=== PATIENT | male | born 1995 | race American Indian/Alaskan Native ===

== ENCOUNTER 2016-09-18 22:57 | Emergency (ER) | payer SELFPAY ==
[2016-09-18 23:42] LABS: Urine Drugs of Abuse Note Disclamer
[2016-09-18 23:44] LABS: Basophils % (Auto) 0.5 % (0.0-1.8); Eosinophils % (Auto) 0.9 % (0.0-4.3); Hematocrit 41.9 % (35.5-45.6); Hemoglobin 14.1 gm/dl (11.8-15.2); Mean Corpuscular HGB Conc 34 % (32-34); Mean Corpuscular Hemoglobin 33 pg (28-32); Mean Corpuscular Volume 97 fl (84-94); Platelet Count 268 K/mm3 (140-440); Red Blood Count 4.31 M/mm3 (3.65-5.03); Red Cell Distribution Width 14.6 % (13.2-15.2); White Blood Count 6.4 K/mm3 (4.5-11.0)
[2016-09-18 23:52] LABS: Bilirubin,Urine NEG (Negative); Blood,Urine NEG (Negative); Ketones,Urine NEG (Negative); Leukocyte Esterase,Urine NEG (Negative); Nitrite,Urine NEG (Negative); Protein,Urine <15 mg/dL mg/dL (Negative); Urobilinogen,Urine < 2.0 mg/dL (<2.0); WBC,Urine < 1.0 /HPF (0.0-6.0)
[2016-09-18 23:54] LABS: Anion Gap 15 mmol/L; BUN/Creatinine Ratio 8.75; Blood Urea Nitrogen 7 mg/dL (9-20); Calcium 8.8 mg/dL (8.4-10.2); Carbon Dioxide 29 mmol/L (22-30); Chloride 107.1 mmol/L (98-107); Glucose 90 mg/dL (75-100); Potassium 4.2 mmol/L (3.6-5.0); Sodium 147 mmol/L (137-145)
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
--- NOTE | 2016-09-19 05:47 | Event Note ---
Date: 09/19/16 Vital signs reviewed and appreciated. Patient pending psychiatric consultation. Vital Signs 09/18/16 23:22 Temperature 98.1 F Pulse Rate 85 Respiratory 16 Rate Blood Pressure 140/90 [Left] O2 Sat by Pulse 99 Oximetry
--- NOTE | 2016-09-19 17:19 | Consultation ---
History of Present Illness - Reason for Consult Consult date: 09/19/16 Reason for consult: EtOH intoxication and SI - History of Present Psychiatric Illness This is a 20 year old male with a PPH of MDD who now presents with worsening mood symptoms and SI in the context of social stressors and acute EtOH intoxication. On my assessment, he was not appearing intoxicated on clinical examination. He no longer endorsed SI and further noted that he was upset at his GF who has a big mouth. When asked about what, he noted about his unemployment. Patient recently lost his job several weeks ago at the [employer], but has now regained employment at [employer] in [place]. Current he denies SI, AVH, or manic symptoms. Medications and Allergies Allergies Allergy/AdvReac Type Severity Reaction Status Date / Time No Known Allergies Allergy Verified 11/17/15 19:12 Home Medications Medication Instructions Recorded Confirmed Last Taken Type No Known Home Medications [No 06/27/16 09/18/16 Unknown History Reported Home Medications] Mental Status Exam - Vital signs Last Vital Signs Temp 98.1 F 09/18/16 23:22 Pulse 85 09/18/16 23:22 Resp 16 09/18/16 23:22 BP 140/90 09/18/16 23:22 Pulse Ox 99 09/18/16 23:22 - Exam Narrative exam: "I am doing better" he is aware of his current situation. He is not taking medications. The patient notes that their mood is: sad. Affect is constricted Patient relates sleep is: inconsistent. Energy levels are: stable Appetite is: stable Anxiety: present and related to social circumstances Appearance: Patient appears stated age Behavior: cooperative Cooperation: fair Insight/Judgment: limited Level of cognition: not assessed comprehensively Level of consciousness: A/O x 3 Knowledge: unable to assess Speech: fluent Thought processes: organized and logical Thought content: no SI/HI Perceptions: no AVH Results Result Diagrams: 09/18/16 23:25 09/18/16 23:25 Abnormal lab results 09/18/16 09/18/16 09/18/16 Range/Units 23:25 23:25 23:25 MCV 97 H (84-94) fl MCH 33 H (28-32) pg Lymph % (Auto) 50.2 H (13.4-35.0) % Sodium 147 H (137-145) mmol/L Chloride 107.1 H (98-107) mmol/L BUN 7 L (9-20) mg/dL Plasma/Serum Alcohol 0.33 H (0-0.07) gm% All other labs normal. Assessment and Plan Assessment and plan: Impression: Acute EtOH Intoxication Underlying symptoms of Depression that has been present with remitting and relapsing course for the past two years. Last treatment was two years ago at an inpatient hospitalization. No SA noted per history Plan: Rescind [address] [place] [address] to help coordinate outpatient services in the community with a psychiatrist and a therapist Patient may benefit for a day program if he is amenable to going
[2016-09-19 18:43] VITALS: BP 156/96
== END 2016-09-19 20:36 | disposition home or self-care (01) ==
LOC: ED 22:57 → EEVIPCON 22:57 → ED 09-19 20:36
DX: R45.851 Suicidal ideations (principal); F10.129 Alcohol abuse with intoxication, unspecified; F17.200 Nicotine dependence, unspecified, uncomplicated
CPT/HCPCS: 36415; 80048; 80307; 81001; 85025; 99283; G0480; 80320

== ENCOUNTER 2016-10-27 00:58 | Emergency (ER) | payer SELFPAY ==
[2016-10-27] MEDS ORDERED: MOTRIN PO ONE (04:39)
--- NOTE | 2016-10-27 04:42 | XRay Report ---
FINAL REPORT PROCEDURE: XR HAND 3 RT TECHNIQUE: RIGHT hand radiographs, AP, lateral, and oblique views. CPT 15722-YL HISTORY: last two fingers swollen on right hand after fall COMPARISON: No prior studies are available for comparison. FINDINGS: Fracture (s) and/or Dislocation(s): None . Alignment: Normal . Joint space(s): Normal . Soft tissues: Normal . Bone mineralization: Normal . Foreign bodies: None . IMPRESSION: Normal Examination .
--- NOTE | 2016-10-27 05:01 | Emergency Department Report ---
Upper Extremity - HPI Chief Complaint: Extremity Injury, Upper Stated Complaint: RIGHT HAND AND SMALL FINGER PAIN Time Seen by Provider: 10/27/16 04:30 Upper Extremity: Right Little Finger Occurred When: 1 Day Mechanism: Fall Severity: moderate Symptoms: Yes Pain with Movement, Yes Swelling, Yes Bruising/Ecchymosis, No Deformity, No Limited Range of Movement, No Numbness, No Weakness, No Laceration or Abrasion Other History: 20-year-old male significant past medical history presents with complaint of right pinky pain status post mechanical fall last night. Patient states that he tripped while walking home onto his right pinky. Pinky bent backward momentarily. Denies any lacerations denies sustaining any other injuries. Pinky visibly swollen. Denies any other injuries other than some minor abrasions to right forearm ED Review of Systems ROS: Stated complaint: RIGHT HAND AND SMALL FINGER PAIN Other details as noted in HPI Constitutional: denies: chills, fever Eyes: denies: eye pain, eye discharge, vision change ENT: denies: ear pain, throat pain Respiratory: denies: cough, shortness of breath, wheezing Cardiovascular: denies: chest pain, palpitations Endocrine: no symptoms reported Gastrointestinal: denies: abdominal pain, nausea, diarrhea Genitourinary: denies: urgency, dysuria Musculoskeletal: as per HPI. denies: back pain, joint swelling, arthralgia Skin: denies: rash, lesions Neurological: denies: headache, weakness, paresthesias Psychiatric: denies: anxiety, depression Hematological/Lymphatic: denies: easy bleeding, easy bruising ED Past Medical Hx - Past Medical History Previous Medical History?: No Additional medical history: Various lacerations and contusuions listed in file - Social History Smoking Status: Unknown if ever smoked - Medications Home Medications: Home Medications Medication Instructions Recorded Confirmed Last Taken Type Ibuprofen [Motrin] 800 mg PO Q8HR PRN #25 tablet 10/27/16 Unknown Rx Upper Extremity Exam - Exam General: Vital signs noted. No distress. Alert and acting appropriately. Head and Torso: No HEENT Abnormality, No Neck Tenderness, No Chest/Lungs Abnormality, No Abdominal Tenderness, No Back Tenderness Shoulder Exam: Yes Normal Range of Motion in Shoulder, No Shoulder Tenderness, No Clavicle Tenderness, No Shoulder Deformity, No AC Joint Tenderness Arm Exam: No Arm/Humerus Tenderness, No Arm Deformity Elbow: No Elbow Tenderness, No Normal Range of Motion in Elbow, No Elbow Deformity Forearm: No Forearm Tenderness, No Forearm Deformity, No Pain with Pronation, No Pain with Supination Wrist: Yes Normal ROM in Wrist, No Wrist Tenderness, No Wrist Deformity, No Snuffbox Tenderness (there is no snuffbox tenderness right hand), No Pain with Axial Thumb Compression Hand: Yes Digit Tenderness (mild pinky finger swelling and tenderness at the MCP joints and PIP joints), Yes Normal ROM in Digit(s) (injury of motion at PIP joint DIP joint and MCP joints to flexion and extension fully intact and against resistance), No Hand Tenderness, No Hand Deformity, No Digit(s) Deformity, No Tendon Dysfunction CMS Exam: Yes Normal Distal Pulses, Yes Normal Capillary Refill (distal capillary refill all fingers less than 1 second), No Broken Skin, No Normal Distal Sensation ED Course Vital Signs 10/27/16 01:56 Temperature 98.3 F Pulse Rate 77 Respiratory 18 Rate Blood Pressure 138/93 O2 Sat by Pulse 98 Oximetry ED Medical Decision Making - Medical Decision Making A/P: Pinky finger sprain 1-x-ray shows no fractures, no snuffbox tenderness, no neurovascular injury to hand range of motion fingers DIP PIP and MCP wrist flexion and extension forearm motion fully intact only minor small abrasions to forearm 2-Motrin 800 when necessary 3-finger splint 4-follow-up with orthopedics Critical care attestation.: If time is entered above; I have spent that time in minutes in the direct care of this critically ill patient, excluding procedure time. ED Disposition Clinical Impression: Sprain of finger, right Qualifiers: Encounter type: initial encounter Qualified Code(s): S63.619A - Unspecified sprain of unspecified finger, initial encounter Disposition: DISCHARGED TO HOME OR SELFCARE Is pt being admited?: No Does the pt Need Aspirin: No Condition: Stable Instructions: Jammed Finger (ED), Finger Sprain (ED) Prescriptions: Ibuprofen [Motrin] 800 mg PO Q8HR PRN #25 tablet PRN Reason: Pain Referrals: ANGI LONDON MD [Staff Physician] - 3-5 Days Time of Disposition: 05:02
[2016-10-27 05:14] VITALS: BP 135/73
== END 2016-10-27 05:12 | disposition home or self-care (01) ==
LOC: ED 00:58
DX: S63.616A Unspecified sprain of right little finger, initial encounter (principal); W01.0XXA Fall on same level from slipping, tripping and stumbling without subsequent striking against object, initial encounter; Y93.01 Activity, walking, marching and hiking; Y99.8 Other external cause status; Y92.098 Other place in other non-institutional residence as the place of occurrence of the external cause
CPT/HCPCS: 99283

== ENCOUNTER 2018-01-04 01:32 | Emergency (ER) | payer SELFPAY ==
[2018-01-04 02:17] LABS: Basophils % (Auto) 0.3 % (0.0-1.8); Eosinophils # (Auto) 0.2 K/mm3 (0.0-0.4); Eosinophils % (Auto) 3.1 % (0.0-4.3); Hematocrit 42.6 % (35.5-45.6); Hemoglobin 14.7 gm/dl (11.8-15.2); Lymphocytes # (Auto) 2.5 K/mm3 (1.2-5.4); Lymphocytes % (Auto) 33.4 % (13.4-35.0); Mean Corpuscular HGB Conc 34 % (32-34); Mean Corpuscular Hemoglobin 33 pg (28-32); Mean Corpuscular Volume 95 fl (84-94); Monocytes # (Auto) 0.4 K/mm3 (0.0-0.8); Monocytes % (Auto) 5.3 % (0.0-7.3); Platelet Count 230 K/mm3 (140-440); Red Blood Count 4.49 M/mm3 (3.65-5.03); Red Cell Distribution Width 13.5 % (13.2-15.2)
[2018-01-04 02:40] LABS: BUN/Creatinine Ratio 6; Blood Urea Nitrogen 6 mg/dL (9-20); Calcium 8.7 mg/dL (8.4-10.2); Hemolysis Index 9
[2018-01-04 03:55] LABS: Bilirubin,Urine NEG (Negative); Blood,Urine NEG (Negative); Color,Urine Yellow (Yellow); Mucus,Urine FEW /HPF; Protein,Urine <15 mg/dL mg/dL (Negative); Urobilinogen,Urine < 2.0 mg/dL (<2.0)
[2018-01-04 04:03] LABS: Amphetamine Screen,Urine PRESUMPTIVE NEGATIVE; Benzodiazepines Screen,Urine PRESUMPTIVE NEGATIVE; Methadone Screen,Urine PRESUMPTIVE NEGATIVE; Opiate Screen,Urine PRESUMPTIVE NEGATIVE
[2018-01-04 04:32] LABS: Cannabinoid Screen,Urine PRESUMPTIVE POSITIVE; Cocaine Screen,Urine PRESUMPTIVE POSITIVE
--- NOTE | 2018-01-04 05:14 | Emergency Department Report ---
<VICKIKOTA - Last Filed: 01/04/18 05:10> ED Psych HPI - General Chief Complaint: Psych Stated Complaint: MENTAL HEALTH Time Seen by Provider: 01/04/18 05:06 Source: patient Mode of arrival: Ambulatory - History of Present Illness Initial Comments: 22-year-old man presents with history of accelerating and chronic stress at home , with increasing anxiety and interpersonal difficulties with family members at home. He has had multiple stressors, usually interpersonal, but has not been physically violent, and although he has felt somewhat depressed as result of his anxiety, he has not gross or desperate, and has not had suicidal ideation. He drinks alcohol regular, sometimes to excess, last drink was approximately 8 hours earlier, but does not feel intoxicated, does not feel agitated or unsteady , has no nausea, no chest pain, no formication. Past medical history good general health, with a distant history of asthma, and he reports some vague past contact for mental health evaluations, but has never followed up on this routinely, but has never been treated with any medications for any mental issues. He takes no medications routinely, has no allergies, denies recreational substance abuse, but he does smoke daily. -: month(s) Associated Psychiatric Symptoms: depression History of same: No Quality: intermittent, getting worse Improves With: none Worsens With: none Context: recent alcohol abuse, significant life stressor Associated Symptoms: denies other symptoms Treatments Prior to Arrival: none - Related Data Previous Rx's Medication Instructions Recorded Last Taken Type Ibuprofen [Motrin] 800 mg PO Q8HR PRN #25 tablet 10/27/16 Unknown Rx Allergies Allergy/AdvReac Type Severity Reaction Status Date / Time No Known Allergies Allergy Verified 11/17/15 19:12 ED Review of Systems ROS: Stated complaint: MENTAL HEALTH Other details as noted in HPI Comment: All other systems reviewed and negative Constitutional: denies: chills, fever Eyes: denies: eye pain, eye discharge, vision change Respiratory: denies: cough, shortness of breath, wheezing Cardiovascular: denies: chest pain, palpitations Endocrine: no symptoms reported Gastrointestinal: denies: abdominal pain, nausea, diarrhea Musculoskeletal: denies: back pain, joint swelling, arthralgia Skin: denies: rash, lesions Neurological: denies: headache, weakness, paresthesias Psychiatric: anxiety, depression Hematological/Lymphatic: denies: easy bleeding, easy bruising ED Past Medical Hx - Past Medical History Previous Medical History?: No Hx Asthma: Yes Additional medical history: Various lacerations and contusuions listed in file - Surgical History Past Surgical History?: No - Social History Smoking Status: Current Every Day Smoker Substance Use Type: Alcohol - Medications Home Medications: Home Medications Medication Instructions Recorded Confirmed Last Taken Type Ibuprofen [Motrin] 800 mg PO Q8HR PRN #25 tablet 10/27/16 Unknown Rx ED Physical Exam - General Limitations: No Limitations General appearance: alert, anxious - Head Head exam: Present: atraumatic, normocephalic - Eye Eye exam: Present: PERRL, EOMI - ENT ENT exam: Present: normal exam, mucous membranes moist - Neck Neck exam: Present: normal inspection. Absent: tenderness - Respiratory Respiratory exam: Present: normal lung sounds bilaterally, wheezes. Absent: rales, rhonchi (rare, faint), chest wall tenderness - Cardiovascular Cardiovascular Exam: Present: regular rate, normal heart sounds. Absent: systolic murmur, diastolic murmur - GI/Abdominal GI/Abdominal exam: Present: soft, normal bowel sounds. Absent: distended, tenderness, guarding, rebound - Rectal Rectal exam: Present: deferred - Extremities Exam Extremities exam: Present: normal inspection, full ROM, normal capillary refill. Absent: tenderness, pedal edema - Back Exam Back exam: Present: normal inspection - Neurological Exam Neurological exam: Present: alert, oriented X3, CN II-XII intact. Absent: motor sensory deficit, other (no tremor) - Psychiatric Psychiatric exam: Present: anxious - Skin Skin exam: Present: warm, dry, intact ED Course Vital Signs 01/04/18 01/04/18 01/04/18 01:41 04:00 04:06 Temperature 98.4 F 98.4 F Pulse Rate 111 H 94 H Respiratory 18 18 20 Rate Blood Pressure 129/75 Blood Pressure 112/46 [Right] O2 Sat by Pulse 99 95 95 Oximetry ED Medical Decision Making - Lab Data Result diagrams: 01/04/18 01:47 01/04/18 01:47 Critical care attestation.: If time is entered above; I have spent that time in minutes in the direct care of this critically ill patient, excluding procedure time. ED Disposition Clinical Impression: Acute alcohol intoxication, Stress at home Disposition: DC-01 TO HOME OR SELFCARE Condition: Stable Instructions: Abuse of Alcohol (ED) <FOTRINOANGELIC - Last Filed: 01/04/18 09:36> ED Medical Decision Making - Lab Data Result diagrams: 01/04/18 01:47 01/04/18 01:47 - Medical Decision Making I evaluated Mr. Jordan after assuming care of patient from my colleague Dr. Alvarado. Psychiatric team evaluated Mr. Jordan. He was given outpatient resources. He denies SI or HI. He reports drinking alcohol when he is "stressed". He is appropriate for discharge home. ED Disposition Is pt being admited?: No Does the pt Need Aspirin: No Time of Disposition: 09:36
[2018-01-04 10:54] VITALS: BP 116/74
--- NOTE | 2018-01-04 12:43 | Consultation ---
History of Present Illness - Reason for Consult Consult date: 01/04/18 Reason for consult: Mental Health Evaluation Requesting physician: KOTA COHEN - Chief Complaint Chief complaint: "I need to stop drinking" - History of Present Psychiatric Illness 22-year-old man presents with history of accelerating and chronic stress at home. Today the patient is calm and cooperative during the assessment. He stated that he was stressed prior to his admission and had several drinks (etoh ) to calm himself down. He stated that he is experiencing some life stressors, but feel like it will pass soon (the stress). He stated that he started drinking alcohol (etoh) as a teenager. He stated that his alcohol consumption had increased over the past several months because of "stress." He stated that he would like a referral to outpatient rehab services. He denies depression and manic episodes in the past. He denies SI/HI's and AVH's. He admitted to recreational drug use. Medications and Allergies Allergies Allergy/AdvReac Type Severity Reaction Status Date / Time No Known Allergies Allergy Verified 11/17/15 19:12 Home Medications Medication Instructions Recorded Confirmed Last Taken Type Ibuprofen [Motrin] 800 mg PO Q8HR PRN #25 tablet 10/27/16 Unknown Rx Past psychiatric history - Past Medical History Past Medical History: other (Asthma) Past Surgical History: No surgical history - past Psychiatric treatment and history psychiatric treatment history: Denies a psy hx and fam psy hx. Mental Status Exam - Vital signs Last Vital Signs Temp 98.4 F 01/04/18 10:53 Pulse 74 01/04/18 10:53 Resp 16 01/04/18 10:53 BP 116/74 01/04/18 10:53 Pulse Ox 95 01/04/18 04:06 - Exam Narrative exam: MSE: Appearance: calm, cooperative Behavior: regular eye contact Speech: regular rate and tone Mood: "okay" Affect: congruent to mood Thought Process: linear Thought Content: denies SI/HI's and AVH's Motor Activity: ambulatory Cognition: A/O x 3 Insight: appropriate Judgment: appropriate Results Result Diagrams: 01/04/18 01:47 01/04/18 01:47 Abnormal lab results 01/04/18 01/04/18 01/04/18 Range/Units 01:47 01:47 01:47 MCV (84-94) fl MCH (28-32) pg BUN 6 L (9-20) mg/dL Salicylates < 0.3 L (2.8-20.0) mg/dL Acetaminophen < 5.0 L (10.0-30.0) ug/mL Plasma/Serum Alcohol (0-0.07) % 01/04/18 01/04/18 Range/Units 01:47 01:47 MCV 95 H (84-94) fl MCH 33 H (28-32) pg BUN (9-20) mg/dL Salicylates (2.8-20.0) mg/dL Acetaminophen (10.0-30.0) ug/mL Plasma/Serum Alcohol 0.18 H (0-0.07) % All other labs normal. Assessment and Plan Assessment and plan: Impression: Alcohol Use DO. Alcohol Intoxication on admission. Substance Use DO (cocaine). Cannabis Use DO. Today the patient is calm and cooperative during the assessment. DDx: R/O Mood DO, R/O Substance Induced Mood DO Recommendation/Plan: The patient can follow up with [facility] for outpatient rehab services.
== END 2018-01-04 10:54 | disposition home or self-care (01) ==
LOC: ED 01:32
DX: F10.129 Alcohol abuse with intoxication, unspecified (principal); F43.9 Reaction to severe stress, unspecified; J45.909 Unspecified asthma, uncomplicated; F17.200 Nicotine dependence, unspecified, uncomplicated; Z79.899 Other long term (current) drug therapy
CPT/HCPCS: 36415; 80048; 80307; 81001; 85025; 99283; G0480; 80320

== ENCOUNTER 2018-07-06 18:52 | Emergency (ER) | payer SELFPAY ==
[2018-07-06 19:24] LABS: Hemoglobin 14.4 gm/dl (11.8-15.2); Mean Corpuscular HGB Conc 34 % (32-34); Mean Corpuscular Volume 94 fl (84-94); Platelet Count 284 K/mm3 (140-440); Red Blood Count 4.57 M/mm3 (3.65-5.03); Red Cell Distribution Width 15.3 % (13.2-15.2)
[2018-07-06 19:36] LABS: Bilirubin,Urine NEG (Negative); Blood,Urine NEG (Negative); Color,Urine Straw (Yellow); Protein,Urine <15 mg/dL mg/dL (Negative); Urobilinogen,Urine < 2.0 mg/dL (<2.0)
[2018-07-06 19:44] LABS: Amphetamine Screen,Urine PRESUMPTIVE NEGATIVE; Benzodiazepines Screen,Urine PRESUMPTIVE NEGATIVE; Methadone Screen,Urine PRESUMPTIVE NEGATIVE; Opiate Screen,Urine PRESUMPTIVE NEGATIVE
[2018-07-06 19:46] LABS: BUN/Creatinine Ratio 8; Blood Urea Nitrogen 6 mg/dL (9-20); Calcium 8.9 mg/dL (8.4-10.2); Hemolysis Index 9
[2018-07-06 19:57] LABS: Cannabinoid Screen,Urine PRESUMPTIVE POSITIVE; Cocaine Screen,Urine PRESUMPTIVE POSITIVE
[2018-07-06 20:01] LABS: Basophils % (Manual) 0 % (0.0-1.8); RBC Morphology Normal; Total Cells Counted 100
--- NOTE | 2018-07-06 20:06 | Emergency Department Report ---
HPI - General Chief Complaint: Psych Time Seen by Provider: 07/06/18 19:30 - HPI HPI: 22-year-old -[place] male presents to the emergency department for a mental health evaluation and hopes of getting to a drug/alcohol detoxification and rehabilitation Center. The patient uses marijuana, cocaine and drinks alcohol. He drinks alcohol to get drunk every day. He says that he does have a history of attempting to quit but he started having shakes and withdrawal symptoms. Patient denies any suicidal or homicidal ideations. He denies any hallucinations but sometimes does admit to some paranoia. 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 ED Past Medical Hx - Past Medical History Hx Asthma: Yes Additional medical history: Various lacerations and contusuions listed in file - Surgical History Past Surgical History?: No - Social History Smoking Status: Current Every Day Smoker Substance Use Type: Alcohol, Cocaine, Marijuana - Medications Home Medications: Home Medications Medication Instructions Recorded Confirmed Last Taken Type Ibuprofen [Motrin] 800 mg PO Q8HR PRN #25 tablet 10/27/16 Unknown Rx ED Review of Systems ROS: Stated complaint: CRISIS Other details as noted in HPI Comment: All other systems reviewed and negative Constitutional: denies: chills, fever Eyes: denies: eye pain, eye discharge, vision change ENT: denies: ear pain, throat pain Respiratory: denies: cough, shortness of breath, wheezing Cardiovascular: denies: chest pain, palpitations Gastrointestinal: denies: abdominal pain, vomiting Genitourinary: denies: urgency, dysuria Musculoskeletal: denies: back pain, arthralgia Skin: denies: rash, lesions Neurological: denies: headache, weakness Psychiatric: denies: auditory hallucinations, visual hallucinations, homicidal thoughts, suicidal thoughts Physical Exam - Physical Exam Vital Signs: Vital Signs 07/06/18 19:15 Temperature 97.7 F Pulse Rate 88 Respiratory 18 Rate Blood Pressure 137/95 O2 Sat by Pulse 100 Oximetry Physical Exam: GENERAL: The patient is well-developed well-nourished. HEENT: Normocephalic. Atraumatic. Patient has moist mucous membranes. EYES: Extraocular motions are intact. NECK: Supple. Trachea is midline. CHEST/LUNGS: Clear to auscultation. There is no respiratory distress noted. HEART/CARDIOVASCULAR: Regular. There is no tachycardia. There is no obvious murmur. ABDOMEN: Abdomen is soft, nontender. Patient has normal bowel sounds. There is no abdominal distention. SKIN: Skin is warm and dry. NEURO: The patient is awake, alert, and oriented. The patient is cooperative. The patient has no focal neurologic deficits. The patient has normal speech. MUSCULOSKELETAL: There is no tenderness or deformity. There is no limitation range of motion. There is no evidence of acute injury. ED Course Vital Signs 07/06/18 19:15 Temperature 97.7 F Pulse Rate 88 Respiratory 18 Rate Blood Pressure 137/95 O2 Sat by Pulse 100 Oximetry ED Medical Decision Making - Lab Data Result diagrams: 07/06/18 19:16 07/06/18 19:16 - Medical Decision Making Patient presents for some assistance with drug and alcohol detoxification and rehabilitation. Patient is a consistent user of cocaine and alcohol. Despite the fact that the patient's blood alcohol level was 0.29 upon arrival, he is calm and appropriate, oriented. Urine drug screen was positive for both cocaine and marijuana which the patient is admitted to using. The rest of his blood work is unremarkable. He says that he will occasionally have some paranoia, although he does not display this at this time. No signs of any acute psychosis. He denies any suicidal or homicidal ideations. He does not appear to meet criteria to be made a 1013, but the patient will be made a 2013 and we will assist in placement for drug and alcohol rehabilitation. - Differential Diagnosis alcohol dependence/intoxication, polysubstance abuse, bipolar disorder Critical Care Time: No Critical care attestation.: If time is entered above; I have spent that time in minutes in the direct care of this critically ill patient, excluding procedure time. ED Disposition Clinical Impression: Cocaine use Alcohol intoxication Qualifiers: Complication of substance-induced condition: uncomplicated Qualified Code(s): F10.920 - Alcohol use, unspecified with intoxication, uncomplicated Alcohol dependence Qualifiers: Substance use status: unspecified alcohol-induced disorder Qualified Code(s): F10.29 - Alcohol dependence with unspecified alcohol-induced disorder Disposition: DC/TX-65 PSY HOSP/PSY UNIT Is pt being admited?: No Condition: Stable Referrals: PRIMARY CARE, [Primary Care Provider] - 3-5 Days Time of Disposition: 23:51
[2018-07-06] MEDS ORDERED: VITAMIN B-1 PO ONE (23:17)
[2018-07-06] MEDS ORDERED: THERAGRAN Tab PO ONE (23:17)
[2018-07-07 09:40] VITALS: BP 124/77
--- NOTE | 2018-07-07 13:40 | Consultation ---
History of Present Illness - Reason for Consult Consult date: 07/07/18 Reason for consult: Initial Psychiatric Evaluation - Chief Complaint Chief complaint: " I am going through a crisis" - History of Present Psychiatric Illness Patient is a 22-year-old -[place] male that presents to the emergency department for a mental health evaluation. Patient verbalizes that he is here for drug and alcohol abuse. Patient would like to go to a rehabilitation center for drugs/alcohol. Patient states that his drug of choice is cocaine, marijuana, and alcohol. Per patient he uses approximately 1 gram of cocaine every other day, 1 pint of alcohol daily, and 1 "blunt" every couple of weeks. He last used on 07-06-18. Today the patient is calm and cooperative during the assessment. He reports anhedonia, decrease appetite, decrease energy, and decrease sleep. Also patient endorses depressed mood related to financial/relationship stressors. He denies SI/HI's, A/VH's, and delusions. Per patient when under the influence of drugs/alcohol he has paranoid delusions. Current Psychiatric Medications: Patient denies. Past Psychiatric History: No previous psychiatric diagnosis; 2 previous inpatient psychiatric hospitalizations ([place], 2-3 years ago); No outpatient psychiatrist; No previous suicide attempt. Past Medication Trials: Patient denies. History of Trauma/Abuse: Patient denies sexual, physical, and mental abuse. History of Drug/Alcohol Abuse: Cocaine-1 gram of cocaine every other day, "snort," last use- 07-06-18, first use- Age 20 ; Alcohol- 1 pint of alcohol daily, " drink, " last use- 07-06-18, first use- Age 12; Marijuana - 1 blunt every couple of weeks, "smoke", last use- " a couple of weeks ago," first use- " Age 12." UDS positive for cocaine and marijuana. Social History: Some college; 1 son- age 4; lives with grandmother; employed at [employer]; good support system - " grandmother, sister, and brother." Family History of Psychiatric Illness/Substance Abuse: Patient denies family history of psychiatric illness and substance abuse. Medications and Allergies Allergies Allergy/AdvReac Type Severity Reaction Status Date / Time No Known Allergies Allergy Verified 11/17/15 19:12 Home Medications Medication Instructions Recorded Confirmed Last Taken Type Ibuprofen [Motrin] 800 mg PO Q8HR PRN #25 tablet 10/27/16 Unknown Rx Mental Status Exam - Vital signs Last Vital Signs Temp 98.5 F 07/07/18 08:00 Pulse 69 07/07/18 08:00 Resp 14 07/07/18 08:00 BP 124/77 07/07/18 08:00 Pulse Ox 98 07/07/18 08:00 - Exam Narrative exam: Mental Status Exam: Appearance: cooperative and calm Behavior: regular eye contact Speech: regular rate and tone Mood: "depressed/sad " Affect: constricted Thought Process: organized Thought Content: denies SI/HI's, A/VH's, and delusions. Motor Activity: ambulatory Cognition: A/O x 3 Insight: variable Judgment: variable Results Result Diagrams: 07/06/18 19:16 07/06/18 19:16 Abnormal lab results 07/06/18 07/06/18 07/06/18 Range/Units 19:16 19:16 19:16 RDW (13.2-15.2) % Seg Neuts % (Manual) (40.0-70.0) % Lymphocytes % (Manual) (13.4-35.0) % Eosinophils % (Manual) (0.0-4.3) % Eosinophils # (Manual) (0.0-0.4) K/mm3 BUN 6 L (9-20) mg/dL Salicylates < 0.3 L (2.8-20.0) mg/dL Acetaminophen < 5.0 L (10.0-30.0) ug/mL Plasma/Serum Alcohol (0-0.07) % 07/06/18 07/06/18 Range/Units 19:16 19:16 RDW 15.3 H (13.2-15.2) % Seg Neuts % (Manual) 36.0 L (40.0-70.0) % Lymphocytes % (Manual) 49.0 H (13.4-35.0) % Eosinophils % (Manual) 8.0 H (0.0-4.3) % Eosinophils # (Manual) 0.5 H (0.0-0.4) K/mm3 BUN (9-20) mg/dL Salicylates (2.8-20.0) mg/dL Acetaminophen (10.0-30.0) ug/mL Plasma/Serum Alcohol 0.29 H (0-0.07) % All other labs normal. Assessment and Plan Assessment and plan: Impression: PPHx MDD, recurrent, moderate without psychosis, Cocaine Use Disorder, moderate, Alcohol Use Disorder, severe, Cannabis Use Disorder, mild. Today the patient is calm and cooperative during the assessment. He endorses depressed mood. UDS positive for cocaine and marijuana. DDx: R/O Bipolar DO without psychosis, Substance Induced Mood/Psychotic DO Recommendation/Plan: 1. Continue 1013. 2. Start Remeron 7.5mg po QHS depression. Discussed possible increase suicidality. Patient verbalizes full understanding. 3. Will monitor mood, sleep, appetite, compliance, side effects, and withdrawal symptoms. Disposition: The patient was referred to inpatient psychiatric services. Staffed with Dr. Kerry Seals.
[2018-07-07] MEDS ORDERED: REMERON PO SCH (22:00)
== END 2018-07-07 14:47 ==
LOC: ED 18:52
DX: F14.90 Cocaine use, unspecified, uncomplicated (principal); J45.909 Unspecified asthma, uncomplicated; F17.200 Nicotine dependence, unspecified, uncomplicated
CPT/HCPCS: 36415; 80048; 80307; 81001; 85007; 85025; 99285; G0480; 80320

== ENCOUNTER 2020-07-18 16:29 | Emergency (ER) | payer SELFPAY ==
[2020-07-18 16:47] VITALS: BP 142/90
--- NOTE | 2020-07-18 17:21 | XRay Report ---
XR knee 1-2V RT INDICATION: Right knee pain and swelling after injury while playing yesterday.. COMPARISON: No relevant prior imaging study available. FINDINGS: No acute skeletal abnormality. There is a large joint effusion. IMPRESSION: 1. Large joint effusion suggests internal derangement. No displaced fracture is seen. MRI should be c onsidered. Signer Name: Benito Sheldon MD Signed: 07/18/2020 5:16 PM Workstation Name: [id number]
[2020-07-18] MEDS ORDERED: HYDROcodone/ACETAMINOPHEN 5-325 MG TAB PO ONE (17:29)
--- NOTE | 2020-07-18 17:33 | Emergency Department Report ---
ED Lower Extremity HPI - General Chief Complaint: Extremity Injury, Lower Stated Complaint: RT KNEE POSS FX Time Seen by Provider: 07/18/20 17:22 Source: patient Mode of arrival: Ambulatory Limitations: No Limitations - History of Present Illness Initial Comments: Patient is a 24-year-old male who presents emergency room with complaints of a right knee injury that occurred last night. He states that he was playing around with his cousin and his cousin kicked him in the knee which caused internal rotation of the knee and he fell onto the knee. He states since then he has had knee pain and swelling. He states he has not been ambulatory secondary to pain. He denies ever injuring the past. He denies any numbness or weakness. No past medical history. No allergies to medications. - Related Data Previous Rx's Medication Instructions Recorded Last Taken Type Ibuprofen [Motrin] 800 mg PO Q8HR PRN #25 tablet 10/27/16 Unknown Rx HYDROcodone/APAP 5-325 [[place] 1 each PO Q6HR PRN #12 tablet 07/18/20 Unknown Rx 5/325] Ibuprofen [Motrin 600 MG tab] 600 mg PO Q8H PRN #20 tablet 07/18/20 Unknown Rx Allergies Allergy/AdvReac Type Severity Reaction Status Date / Time No Known Allergies Allergy Verified 11/17/15 19:12 ED Review of Systems ROS: Stated complaint: RT KNEE POSS FX Other details as noted in HPI Comment: All other systems reviewed and negative ED Past Medical Hx - Past Medical History Hx Asthma: Yes Additional medical history: Various lacerations and contusuions listed in file - Surgical History Past Surgical History?: No - Social History Smoking Status: Current Every Day Smoker - Medications Home Medications: Home Medications Medication Instructions Recorded Confirmed Last Taken Type Ibuprofen [Motrin] 800 mg PO Q8HR PRN #25 tablet 10/27/16 Unknown Rx HYDROcodone/APAP 5-325 [[place] 1 each PO Q6HR PRN #12 tablet 07/18/20 Unknown Rx 5/325] Ibuprofen [Motrin 600 MG tab] 600 mg PO Q8H PRN #20 tablet 07/18/20 Unknown Rx ED Physical Exam - General Limitations: No Limitations General appearance: alert, in no apparent distress - Head Head exam: Present: atraumatic, normocephalic - Eye Eye exam: Present: normal appearance - ENT ENT exam: Present: mucous membranes moist - Respiratory Respiratory exam: Absent: respiratory distress, accessory muscle use - Extremities Exam Extremities exam: Present: other (edema present to the right knee, ttp of the right anterior and right medial knee, decreased ROM of the right knee secondary to pain, neurovascularly intact) - Neurological Exam Neurological exam: Present: alert, oriented X3 - Psychiatric Psychiatric exam: Present: normal affect, normal mood - Skin Skin exam: Present: warm, dry, intact ED Course Vital Signs 07/18/20 07/18/20 16:44 17:36 Temperature 98.9 F Pulse Rate 94 H Respiratory 20 18 Rate Blood Pressure 142/90 O2 Sat by Pulse 98 Oximetry ED Lower Extremity MDM - Radiology Data Radiology results: report reviewed Ordering Physician: ED MD JUNIOR Date of Service: 07/18/20 Procedure(s): XR knee 1-2V RT Accession Number(s): [id number] cc: ED MD JUNIOR Fluoro Time In Minutes: XR knee 1-2V RT INDICATION: Right knee pain and swelling after injury while playing yesterday.. COMPARISON: No relevant prior imaging study available. FINDINGS: No acute skeletal abnormality. There is a large joint effusion. IMPRESSION: 1. Large joint effusion suggests internal derangement. No displaced fracture is seen. MRI should be considered. Signer Name: Benito Sheldon MD Signed: 07/18/2020 5:16 PM Workstation Name: [id number] Transcribed By: OBED Dictated By: Benito Sheldon MD Electronically Authenticated By: Benito Sheldon MD Signed Date/Time: 07/18/201715 DD/ 15 TD/TT: - Medical Decision Making Patient is a 24-year-old male who presents emergency room with complaints of a right knee injury that occurred last night. He states that he was playing around with his cousin and his cousin kicked him in the knee which caused internal rotation of the knee and he fell onto the knee. He states since then he has had knee pain and swelling. He states he has not been ambulatory secondary to pain. He denies ever injuring the past. He denies any numbness or weakness. No past medical history. No allergies to medications. VSS. on exam: edema present to the right knee, ttp of the right anterior and right medial knee, decreased ROM of the right knee secondary to pain, neurovascularly intact. XR right knee: 1. Large joint effusion suggests internal derangement. No displaced fracture is seen. MRI should be considered. Examination concerning fo r ligamentous tear. Patient given pain medication while in the ED and symptoms improved. Patient placed in knee immobilizer and given crutches and remained neurovascularly intact. Patient given prescription for [place] and ibuprofen. Advised patient Please take medication as prescribed as needed. Please do not drive or operate machinery while taking severe pain medication. Please do not bear weight on the right leg due to concern for knee ligament tear. Follow-up with orthopedic doctor. It is very important that you follow-up. May use ice for 15 minutes at a time, rest, elevation of the leg. Return to emergency room for new or worsening symptoms. - Differential Diagnosis Strain, sprain, fracture, dislocation, contusion, tendinitis, effusion Critical care attestation.: If time is entered above; I have spent that time in minutes in the direct care of this critically ill patient, excluding procedure time. ED Disposition Clinical Impression: Knee effusion, right Internal derangement of knee Qualifiers: Laterality: right Qualified Code(s): M23.91 - Unspecified internal derangement of right knee Knee sprain Qualifiers: Encounter type: initial encounter Involved ligament of knee: unspecified ligament Laterality: right Qualified Code(s): S83.91XA - Sprain of unspecified site of right knee, initial encounter Disposition: - TO HOME OR SELFCARE Is pt being admited?: No Does the pt Need Aspirin: No Condition: Stable Additional Instructions: Please take medication as prescribed as needed. Please do not drive or operate machinery while taking severe pain medication. Please do not bear weight on the right leg due to concern for knee ligament tear. Follow-up with orthopedic doctor. It is very important that you follow-up. May use ice for 15 minutes at a time, rest, elevation of the leg. Return to emergency room for new or worsening symptoms. Prescriptions: Ibuprofen [Motrin 600 MG tab] 600 mg PO Q8H PRN #20 tablet PRN Reason: Pain HYDROcodone/APAP 5-325 [[place] 5/325] 1 each PO Q6HR PRN #12 tablet PRN Reason: Pain , Severe (7-10) Referrals: [facility] [Provider Group] - 3-5 Days RUBA REGALADO MD [Staff Physician] - 3-5 Days Time of Disposition: 17:31 Print Language: BARBADIAN
== END 2020-07-18 17:48 | disposition home or self-care (01) ==
LOC: ED 16:29
DX: S83.91XA Sprain of unspecified site of right knee, initial encounter (principal); M23.91 Unspecified internal derangement of right knee; M25.461 Effusion, right knee; J45.909 Unspecified asthma, uncomplicated; F17.200 Nicotine dependence, unspecified, uncomplicated; Z79.899 Other long term (current) drug therapy; W50.1XXA Accidental kick by another person, initial encounter; Y93.89 Activity, other specified; Y92.89 Other specified places as the place of occurrence of the external cause; Y99.8 Other external cause status

== ENCOUNTER 2020-07-28 23:54 | Emergency (ER) | payer SELFPAY ==
--- NOTE | 2020-07-29 00:14 | Event Note ---
ED Screening Note Date of service: 07/29/20 Time: 00:12 ED Screening Note: This initial assessment/diagnostic orders/clinical plan/treatment(s) is/are subject to change based on patients health status, clinical progression and re- assessment by fellow clinical providers in the ED. Further treatment and workup at subsequent clinical providers discretion. Patient/guardian urged not to elope from the ED as their condition may be serious if not clinically assessed and managed. Initial orders include: This is a 24-year-old male accompanied by his family who states around 2 PM today patient was found to be lethargic and family found 2 bottles of medications that were empty the medications are Seroquel and hydrocodone. Patient has history of depression. The Seroquel was prescribed on 01/25/2019 30 tablet hydrocodone was prescribed on 114 number 12 tablet at this time patient is lethargic not answering questions but sitting up in a chair his respirations easy and unlabored his vital signs are within normal limits. I called poison control and spoke to Eulalio herbert they do not recommend activated charcoal at this time but recommend CBC BMP salicylate level acetaminophen level and ethanol level and a call back after the Tylenol level is resulted
[2020-07-29] MEDS ORDERED: SODIUM CHLORIDE 0.9% 1000 ML 1,000 ML IV ONE (00:30)
--- NOTE | 2020-07-29 00:42 | Emergency Department Report ---
History of Present Illness - General Chief Complaint: Overdose Stated Complaint: MH EVAL/SUICIDAL/TOOK PILLS Time Seen by Provider: 07/29/20 00:28 Source: patient Mode of arrival: Ambulatory Limitations: No Limitations - History of Present Illness Initial Comments: 24-year-old male, history of depression, presents to ED following intentional overdose. Patient states he took 15 Seroquel (bottle dated 01/2019), and 1 hydrocodone. Triage note states that patient actually threatened to overdose on pills earlier today at 1PM. Around 5 PM patient woke up with wobbly gait. Patient apparently went back to sleep. 1 hour prior to arrival, patient again woke up and told his grandmother that he cannot swallow. It was at that point that grandmother found 2 empty bottles, Seroquel 50 mg and hydrocodone/acetaminophen 5/325 mg. Patient states he did this because he was feeling suicidal. Complaint: intentional overdose -: This evening Intent: suicide attempt How Overdose Was Discovered: called family/friend Associated Symptoms: depression Treatments Prior to Arrival: none - Related Data Previous Rx's Medication Instructions Recorded Last Taken Type Ibuprofen [Motrin] 800 mg PO Q8HR PRN #25 tablet 10/27/16 Unknown Rx HYDROcodone/APAP 5-325 [[place] 1 each PO Q6HR PRN #12 tablet 07/18/20 Unknown Rx 5/325] Ibuprofen [Motrin 600 MG tab] 600 mg PO Q8H PRN #20 tablet 07/18/20 Unknown Rx Citalopram [Celexa] 20 mg PO QDAY #30 tablet 07/31/20 Unknown Rx Allergies Allergy/AdvReac Type Severity Reaction Status Date / Time No Known Allergies Allergy Verified 11/17/15 19:12 ED Review of Systems ROS: Stated complaint: MH EVAL/SUICIDAL/TOOK PILLS Other details as noted in HPI Comment: All other systems reviewed and negative Psychiatric: depression, suicidal thoughts ED Past Medical Hx - Past Medical History Previous Medical History?: Yes Hx Psychiatric Treatment: Yes (Depression) Hx Asthma: Yes Additional medical history: Various lacerations and contusuions listed in file - Surgical History Past Surgical History?: No - Social History Smoking Status: Current Every Day Smoker Substance Use Type: Marijuana - Medications Home Medications: Home Medications Medication Instructions Recorded Confirmed Last Taken Type Ibuprofen [Motrin] 800 mg PO Q8HR PRN #25 tablet 10/27/16 Unknown Rx HYDROcodone/APAP 5-325 [[place] 1 each PO Q6HR PRN #12 tablet 07/18/20 Unknown Rx 5/325] Ibuprofen [Motrin 600 MG tab] 600 mg PO Q8H PRN #20 tablet 07/18/20 Unknown Rx Citalopram [Celexa] 20 mg PO QDAY #30 tablet 07/31/20 Unknown Rx ED Physical Exam - General Limitations: No Limitations General appearance: alert, in no apparent distress - Head Head exam: Present: atraumatic, normocephalic - Eye Eye exam: Present: normal appearance, EOMI - ENT ENT exam: Present: mucous membranes moist - Neck Neck exam: Present: normal inspection - Respiratory Respiratory exam: Present: normal lung sounds bilaterally. Absent: respiratory distress - Cardiovascular Cardiovascular Exam: Present: normal rhythm, tachycardia - GI/Abdominal GI/Abdominal exam: Present: soft. Absent: distended, tenderness - Extremities Exam Extremities exam: Present: normal inspection - Neurological Exam Neurological exam: Present: alert, oriented X3 - Psychiatric Psychiatric exam: Present: flat affect, suicidal ideation - Skin Skin exam: Present: warm, dry, intact, normal color ED Course Vital Signs 07/29/20 07/29/20 07/29/20 00:12 00:30 02:06 Temperature 98 F Pulse Rate 116 H 108 H 84 Respiratory 20 13 10 L Rate Blood Pressure 112/60 Blood Pressure 138/73 125/75 [Left] O2 Sat by Pulse 98 99 97 Oximetry 07/29/20 07/29/20 07/29/20 03:17 05:38 07:55 Temperature 97.6 F 98.4 F Pulse Rate 73 90 94 H Respiratory 10 L 16 16 Rate Blood Pressure 133/80 Blood Pressure 134/69 151/90 [Left] O2 Sat by Pulse 99 100 99 Oximetry 07/29/20 07/30/20 07/30/20 22:20 06:00 09:02 Temperature 98.6 F 98.3 F 98.4 F Pulse Rate 58 L 69 74 Respiratory 16 18 16 Rate Blood Pressure 133/84 Blood Pressure 129/87 132/82 [Left] O2 Sat by Pulse 95 99 98 Oximetry 07/30/20 07/30/20 07/31/20 16:00 20:00 04:44 Temperature 98.4 F 98.6 F 98.3 F Pulse Rate 86 73 66 Respiratory 16 16 16 Rate Blood Pressure Blood Pressure 122/77 142/93 131/84 [Left] O2 Sat by Pulse 98 100 100 Oximetry 07/31/20 08:00 Temperature 98.2 F Pulse Rate 87 Respiratory 16 Rate Blood Pressure Blood Pressure 144/89 [Left] O2 Sat by Pulse 100 Oximetry - Consultations Consultation #1: 07/29/20 02:05 Spoke with poison control. No Acetadote recommended. States observe for 6 hours. ED Medical Decision Making - Lab Data Result diagrams: 07/29/20 00:18 07/29/20 00:18 - EKG Data -: EKG Interpreted by [facility] EKG shows normal: sinus rhythm, axis, QRS complexes, ST-T waves Rate: tachycardia (rate 108) - EKG Data Interpretation: other (QTc 499) - Medical Decision Making 24-year-old male, history of depression, presents to ED following attempted overdose. Patient reportedly took 15 Seroquel and 1 hydrocodone/acetaminophen tab. Labs are unremarkable. Case discussed with poison control. Patient is currently medically clear for mental health evaluation. Patient has been placed on a 1013. Critical care attestation.: If time is entered above; I have spent that time in minutes in the direct care of this critically ill patient, excluding procedure time. ED Disposition Clinical Impression: Overdose, Suicidal intent, Depression, MDD (major depressive disorder) Disposition: DC-01 TO HOME OR SELFCARE Is pt being admited?: No Condition: Stable Instructions: Major Depressive Disorder, Adult, [id number] Additional Instructions: Professional and Agency Contacts To help Resolve Crises(26/01) OR Crisis Line: Suicide Prevention Line: Crisis Text Line: Text START to [phone] Emergency: 911 Outpatient COMMUNITY Behavioral Health Resources: [place]: [facility] [address] [place], [place] [address] [place]: [facility] [address] [place] [address] [facility]: [facility] [address] [place] [address] Thursday thru Thursday - 8am - 5pm [facility] Address: [address], [place] [address] Thursday thru Thursday- 7am-2pm [facility] Address: [address], [place] [address] Thursday thru Thursday: 8:30AM-5PM Prescriptions: Citalopram [Celexa] 20 mg PO QDAY #30 tablet Referrals: DOTTIE CHU MD [Primary Care Provider] - 3-5 Days
[2020-07-29 00:44] LABS: Hemoglobin 12.3 gm/dl (11.8-15.2); Mean Corpuscular HGB Conc 35 % (32-34); Mean Corpuscular Volume 94 fl (84-94); Platelet Count 319 K/mm3 (140-440); Red Blood Count 3.74 M/mm3 (3.65-5.03)
[2020-07-29 01:04] LABS: Alanine Aminotransferase 14 units/L (7-56); Albumin 4.2 g/dL (3.9-5); BUN/Creatinine Ratio 21; Blood Urea Nitrogen 19 mg/dL (9-20); Calcium 8.8 mg/dL (8.4-10.2); Hemolysis Index 10
[2020-07-29 01:06] LABS: INR 1.02 (0.87-1.13)
[2020-07-29 01:07] LABS: Partial Thromboplastin Time 27.2 Sec. (24.2-36.6)
[2020-07-29 01:53] LABS: Amphetamine Screen,Urine PRESUMPTIVE NEGATIVE; Benzodiazepines Screen,Urine PRESUMPTIVE NEGATIVE; Cannabinoid Screen,Urine PRESUMPTIVE POSITIVE; Cocaine Screen,Urine PRESUMPTIVE NEGATIVE; Methadone Screen,Urine PRESUMPTIVE NEGATIVE; Opiate Screen,Urine PRESUMPTIVE NEGATIVE
[2020-07-29 02:07] LABS: Bilirubin,Urine NEG (Negative); Blood,Urine NEG (Negative); Color,Urine Yellow (Yellow); Mucus,Urine FEW /HPF; Urobilinogen,Urine < 2.0 mg/dL (<2.0)
[2020-07-30] MEDS ORDERED: LORazepam 2 MG/ML VIAL IV PRN (13:08)
[2020-07-31 09:11] VITALS: BP 144/89
--- NOTE | 2020-07-31 11:25 | Consultation ---
History of Present Illness - Reason for Consult Consult date: 07/31/20 Reason for consult: MHE Requesting physician: BRIDGET MEDINA - History of Present Psychiatric Illness Assessment done over Telehealth: Patient is covid 19 positive. PSYCH HPI Patient is a 24-year-old single, currently unemployed -Tajik male who currently resides with family with past psychiatric history of depression and insomnia with no significant past medical history who presented to ED with concerns for OD on seroquel that patient takes for insomnia. Patient reports he has been having with issues with his current baby kimberly, has not been having good relationship with his children and he just wanted to give up then, because he had a black out moment, but says he is glad he is alive and safe because if had he realized his alis not have been beneficial to his kids or family and that was just a moment. Patient states he was at his own place, spoke with braulio harris over the phone, had an argument with her and then he decided tgo take pills seroquel, he reports calling his sister who then alerted their mother and she came over to aid him. Patient describes a good and stable mood, denies being depressed or excessively nervous. Patient eats and sleeps well. Patient denies panic attacks, recurrent nightmares or flashbacks. Patient denies symptoms suggestive of OCD or PTSD. Patient denies hallucinations, paranoia, thought interference and no features suggestive of hypomania or renetta. Patiently completely denies suicidal or homicidal thoughts. PAST PSYCHIATRIC HISTORY Diagnoses: Depression, and INsomna Suicide attempts or Self-harm behavior: Yes, recent first episode Prior psychiatric hospitalizations: Yes Substance Abuse history: Alcohol, Previous psychiatric medications tried: Citalopram Outpatient treatment: outpt PAST MEDICAL HISTORY: None reported Family Psychiatric History: None reported or documented SOCIAL HISTORY Marital Status: Single Living Arrangements: with family Employment Status: yes Access to guns/weapons: none Education: some college History of Abuse: none Legal History: none reported REVIEW OF SYSTEMS Constitutional: Negative for weight loss ENT: Negative for stridor Respiratory: Negative for cough or hemoptysis All other systems reviewed and are negative Normal MENTAL STATUS EXAMINATION General Appearance and Behavior: Over phone assessment. Cooperation: Participating/engaged Psychomotor Behavior: unremarkable and within normal limits Mood: Good Affect and affective range: congruent with mood Thought Process: Fluent/Logical, Thought Content: Within reality, Speech: Normal volume, Regular rate and rhythm, Intellectual Functioning: Average Suicidal Ideation: Denies SI Homicidal Ideation: Denies HI Impulse Control: Unimpaired Insight and Judgment: Normal insight and judgment, Memory: Normal, Attention: Normal, Orientation: Alert, oriented, Assessment and Plan - Psychiatric problem (1) MDD (major depressive disorder) Current Visit: Yes Status: Acute Treatment Plan Outpatient follow up recommended with counselling MEDICATIONS: Risks, benefits and alternatives of medications discussed with the patient, questions answered and consent obtained from patient. PSYCHOTHERAPY: Supportive psychotherapy provided MEDICAL: Per primary team DELIRIUM PRECAUTIONS: Please re-orient patient frequently, keep lights on during the day, and minimize benzodiazepines and opiates as these medications could worsen patient's confusion. LAWN CARE WORKER: DISPOSITION: Do Not Recommend acute inpatient psychiatric hospitalization at this time. Case discussed with Dr. Fernando who agrees with current disposition. Safety discharge. LEGAL STATUS: 1013 rescinded FOLLOW-UP: Will sign off Thank you for the consult. Please contact with any questions and/or concerns. Medications and Allergies Allergies Allergy/AdvReac Type Severity Reaction Status Date / Time No Known Allergies Allergy Verified 11/17/15 19:12 Home Medications Medication Instructions Recorded Confirmed Last Taken Type Ibuprofen [Motrin] 800 mg PO Q8HR PRN #25 tablet 10/27/16 Unknown Rx HYDROcodone/APAP 5-325 [[place] 1 each PO Q6HR PRN #12 tablet 07/18/20 Unknown Rx 5/325] Ibuprofen [Motrin 600 MG tab] 600 mg PO Q8H PRN #20 tablet 07/18/20 Unknown Rx Active Meds: Active Medications Lorazepam (Lorazepam 2 Mg/Ml Vial) 1 mg IV Q6H PRN PRN Reason: Agitation Last Admin: 07/30/20 13:38 Dose: 1 mg Documented by: Mental Status Exam - Vital signs Last Vital Signs Temp 98.2 F 07/31/20 08:00 Pulse 87 07/31/20 08:00 Resp 16 07/31/20 08:00 BP 144/89 07/31/20 08:00 Pulse Ox 100 07/31/20 08:00 Results Result Diagrams: 07/29/20 00:18 07/29/20 00:18 Abnormal lab results 07/30/20 Range/Units 10:06 Coronavirus (PCR) Positive A (Negative) All other labs normal. Assessment and Plan - Psychiatric problem (1) MDD (major depressive disorder) Current Visit: Yes Status: Acute
== END 2020-07-31 12:53 | disposition home or self-care (01) ==
LOC: ED 23:54
DX: T43.592A Poisoning by other antipsychotics and neuroleptics, intentional self-harm, initial encounter (principal); R45.851 Suicidal ideations; J45.909 Unspecified asthma, uncomplicated; F32.9 Major depressive disorder, single episode, unspecified; F17.200 Nicotine dependence, unspecified, uncomplicated; F12.90 Cannabis use, unspecified, uncomplicated; Z79.899 Other long term (current) drug therapy; Z20.828 Contact with and (suspected) exposure to other viral communicable diseases; Y92.89 Other specified places as the place of occurrence of the external cause
CPT/HCPCS: 36415; 80053; 80307; 81001; 83735; 85027; 85610; 85730; 96361; 96374; 99284; J2060; J7030; U0003; 80320; G0480